=== PATIENT | male | born 1975 | race Caucasian/White ===

== ENCOUNTER 2018-03-27 17:55 | Emergency (ER) | payer OTHER ==
[~2018-03-27] VITALS: Ht 170.2 cm; Wt 93.0 kg
[~2018-03-27 17:55] MED LIST: PRILOSEC OTC20 MG PO; PRILOSEC20 MG; PRILOSEC20 MG PO; TEMOVATE45 GM TP; TESSALON PERLE100 M1 PO; TUSSIN CF COUG118 ML PO; ZOVIRAX15 GM TP; ZOVIRAX400 MG PO
[2018-03-27] MEDS ORDERED: DICLOFENAC POTA50 MG PO (20:00)
== END 2018-03-27 20:15 | disposition home or self-care (01) ==
LOC: ER 17:55
DX: M25.562 Pain in left knee (principal)

== ENCOUNTER 2018-05-23 04:57 | Emergency (ER) | payer OTHER ==
[~2018-05-23] VITALS: Ht 170.2 cm; Wt 95.3 kg
[~2018-05-23 04:57] MED LIST changes: +DICLOFENAC POTA50 MG PO
[2018-05-23] MEDS ORDERED: CATAFLAN (05:18)
[2018-05-23] MEDS ORDERED: CYCLOBENZAPRINE10 MG PO (06:18)
[2018-05-23] MEDS ORDERED: ORPHENADRINE C100 MG PO (06:18)
[2018-05-23] MEDS ORDERED: KETO10TA2 PO (06:18)
== END 2018-05-23 06:34 | disposition home or self-care (01) ==
LOC: ER 04:57
DX: M54.5 Low back pain (principal)

== ENCOUNTER 2018-09-12 06:15 | Outpatient (CLI) | payer OTHER ==
[~2018-09-12 06:15] MED LIST changes: +CATAFLAN; +CYCLOBENZAPRINE10 MG PO; +KETO10TA2 PO; +ORPHENADRINE C100 MG PO
== END 2018-09-12 15:00 | disposition home or self-care (01) ==
LOC: LAB 06:15
DX: R03.0 Elevated blood-pressure reading, without diagnosis of hypertension (principal); Z12.5 Encounter for screening for malignant neoplasm of prostate; Z12.11 Encounter for screening for malignant neoplasm of colon; Z13.1 Encounter for screening for diabetes mellitus

== ENCOUNTER 2019-01-13 08:56 | Outpatient (CLI) | payer OTHER | END 2019-01-13 09:04 | disposition home or self-care (01) | LOC: LAB 08:56 | DX: E78.4 Other hyperlipidemia (principal); R42 Dizziness and giddiness; Z00.00 Encounter for general adult medical examination without abnormal findings ==

== ENCOUNTER 2019-02-19 11:42 | Outpatient (CLI) | payer OTHER | END 2019-02-19 11:58 | disposition home or self-care (01) | LOC: LAB 11:42 | DX: J02.8 Acute pharyngitis due to other specified organisms (principal); Z11.3 Encounter for screening for infections with a predominantly sexual mode of transmission ==

== ENCOUNTER 2019-11-03 08:54 | Outpatient (CLI) | payer OTHER | END 2019-11-03 09:36 | disposition home or self-care (01) | LOC: LAB 08:54 | DX: E78.49 Other hyperlipidemia (principal); Z00.00 Encounter for general adult medical examination without abnormal findings; E55.9 Vitamin D deficiency, unspecified; N42.39 Other dysplasia of prostate ==

== ENCOUNTER 2020-08-05 06:00 | Outpatient (CLI) | payer OTHER | END 2020-08-05 15:20 | disposition home or self-care (01) | LOC: PPH VACUNA 06:00 | DX: Z23 Encounter for immunization (principal) ==

== ENCOUNTER → 2020-10-07 06:11 | Outpatient (CLI) | payer OTHER | END | disposition home or self-care (01) | LOC: LAB 06:11 | PROVIDERS: ATTEND General Practice | DX: Z00.00 Encounter for general adult medical examination without abnormal findings (principal); E55.9 Vitamin D deficiency, unspecified; Z11.3 Encounter for screening for infections with a predominantly sexual mode of transmission ==

== ENCOUNTER 2020-10-07 08:42 | Outpatient (CLI) | payer OTHER | END 2020-10-07 08:49 | disposition home or self-care (01) | LOC: RAD 08:42 | PROVIDERS: ATTEND General Practice | DX: R05 Cough (principal) ==

== ENCOUNTER 2020-12-09 12:51 | Emergency (ER) | payer OTHER ==
[~2020-12-09] VITALS: Ht 172.7 cm; Wt 93.0 kg
[2020-12-09] MEDS ORDERED: PRILOSEC10 MG (13:21)
[2020-12-09] MEDS ORDERED: SULFAMETHOXAZO1 EACH (13:22)
[2020-12-09] MEDS ORDERED: ULTRACET PO (15:27)
[2020-12-09] MEDS ORDERED: CIPRO500 MG PO (15:27)
[2020-12-09] MEDS ORDERED: INTESTINEX680 M1 PO (15:27)
== END 2020-12-09 15:37 | disposition home or self-care (01) ==
LOC: ER 12:51
DX: L02.212 Cutaneous abscess of back [any part, except buttock and flank] (principal)

== ENCOUNTER 2021-07-16 09:16 | Outpatient (CLI) | payer OTHER ==
[~2021-07-16 09:16] MED LIST changes: +CIPRO500 MG PO; +INTESTINEX680 M1 PO; +PRILOSEC10 MG; +SULFAMETHOXAZO1 EACH; +ULTRACET PO
== END 2021-07-16 09:19 | disposition home or self-care (01) ==
LOC: LAB 09:16
PROVIDERS: ATTEND General Practice
DX: Z00.00 Encounter for general adult medical examination without abnormal findings (principal)

== ENCOUNTER 2021-08-18 11:11 | Outpatient (CLI) | payer OTHER | END 2021-08-18 12:11 | disposition home or self-care (01) | LOC: PPH VACUNA 11:11 | PROVIDERS: ATTEND Emergency Medicine Pediatric Emergency Medicine | DX: Z23 Encounter for immunization (principal) ==

== ENCOUNTER 2021-11-24 10:24 | Outpatient (CLI) | payer OTHER | END 2021-11-24 14:38 | disposition home or self-care (01) | LOC: LAB 10:24 | DX: U07.1 COVID-19 (principal) ==

== ENCOUNTER 2022-04-10 08:27 | Outpatient (CLI) | payer OTHER | END 2022-04-10 09:36 | disposition home or self-care (01) | LOC: LAB 08:27 | PROVIDERS: ATTEND General Practice | DX: R07.0 Pain in throat (principal) ==

== ENCOUNTER 2022-04-17 10:03 | Outpatient (CLI) | payer OTHER | END 2022-04-17 10:51 | disposition home or self-care (01) | LOC: LAB 10:03 | PROVIDERS: ATTEND General Practice | DX: E78.9 Disorder of lipoprotein metabolism, unspecified (principal); E55.9 Vitamin D deficiency, unspecified; N39.0 Urinary tract infection, site not specified; R10.9 Unspecified abdominal pain; R42 Dizziness and giddiness; Z12.5 Encounter for screening for malignant neoplasm of prostate; Z00.00 Encounter for general adult medical examination without abnormal findings ==

== ENCOUNTER 2022-07-29 09:07 | Emergency (ER) | payer OTHER ==
[~2022-07-29] VITALS: Ht 170.2 cm; Wt 94.3 kg
== END 2022-07-29 14:27 | disposition home or self-care (01) ==
LOC: ER 09:07
DX: S90.32XA Contusion of left foot, initial encounter (principal); X58.XXXA Exposure to other specified factors, initial encounter; Y93.89 Activity, other specified; Y92.89 Other specified places as the place of occurrence of the external cause; Y99.9 Unspecified external cause status

== ENCOUNTER 2022-08-11 10:10 | Outpatient (CLI) | payer OTHER | END 2022-08-11 10:15 | disposition home or self-care (01) | LOC: PPH VACUNA 10:10 | PROVIDERS: ATTEND Emergency Medicine Pediatric Emergency Medicine | DX: Z23 Encounter for immunization (principal) ==

== ENCOUNTER 2023-11-07 12:30 | Outpatient (CLI) | payer OTHER | END 2023-11-07 12:31 | disposition home or self-care (01) | LOC: LAB 12:30 | PROVIDERS: ATTEND Obstetrics & Gynecology | DX: J02.9 Acute pharyngitis, unspecified (principal) ==

== ENCOUNTER 2023-11-15 05:33 | Emergency (ER) | payer OTHER ==
[~2023-11-15] VITALS: Ht 170.2 cm; Wt 95.3 kg
[2023-11-15 09:06] LABS: HEMATOCRIT 42.1 % (39.0-48.0); HEMOGLOBIN 14.3 g/dL (13-16.00); MEAN CELL VOLUME 87.3 fL (80.0-100.00); MEAN CORPUSCULAR HEMOGLOBIN 29.7 pg (27.00-32.0); PLATELET COUNT 142 K/uL (150-450); RED BLOOD COUNT 4.82 M/uL (4.00-6.00); RED CELL DISTRIBUTION WIDTH 14.5 % (11.5-14.5)
[2023-11-15 09:15] LABS: PH,URINE 5.5 (5.0-8.0); URINE APPEARANCE Clear; URINE BILIRRUBIN Small (NEGATIVE); URINE BLOOD Negative; URINE COLOR Dark Yellow; URINE GLUCOSE Negative (NEGATIVE); URINE LEUKOCYTE Trace; URINE NITRATE Negative; URINE PROTEIN 30 (NEGATIVE)
[2023-11-15 09:16] LABS: URINE BACTERIA 20.1 uL (0.0-1933); URINE EPITHELIAL CELLS 7.4 uL (0.0-38.8); URINE RBC 30.1 uL (0.0-20.8)
[2023-11-15 09:35] LABS: CALCIUM 9.2 mg/dL (8.5-10.1); CREATININE SERUM 0.97 mg/dL (0.70-1.30); GFR 81.92; POTASSIUM 3.7 mEq/L (3.5-5.1)
== END 2023-11-15 11:02 | disposition home or self-care (01) ==
LOC: ER 05:34
PROVIDERS: Emergency Medicine
DX: A92.8 Other specified mosquito-borne viral fevers (principal); E86.0 Dehydration; Z20.822 Contact with and (suspected) exposure to COVID-19

== ENCOUNTER 2023-11-17 05:34 | Emergency (ER) | payer OTHER ==
[~2023-11-17] VITALS: Ht 172.7 cm; Wt 95.3 kg
[2023-11-17 08:24] LABS: HEMATOCRIT 46.8 % (39.0-48.0); HEMOGLOBIN 15.7 g/dL (13-16.00); MEAN CELL VOLUME 88.7 fL (80.0-100.00); MEAN CORPUSCULAR HEMOGLOBIN 29.7 pg (27.00-32.0); MEAN CORPUSCULAR HGB CONC 33.5 g/dl (32.0-36.0); RED BLOOD COUNT 5.27 M/uL (4.00-6.00); RED CELL DISTRIBUTION WIDTH 14.6 % (11.5-14.5)
[2023-11-17 08:26] LABS: PLATELET COUNT 91 K/uL (150-450)
[2023-11-17 08:27] LABS: PH,URINE 5.5 (5.0-8.0); URINE APPEARANCE Cloudy; URINE BACTERIA 40.3 uL (0.0-1933); URINE BILIRRUBIN Small (NEGATIVE); URINE COLOR Dark Yellow; URINE EPITHELIAL CELLS 30.2 uL (0.0-38.8); URINE GLUCOSE Negative (NEGATIVE); URINE LEUKOCYTE Trace; URINE NITRATE Negative; URINE RBC 47.1 uL (0.0-20.8); URINE WBC 6.1 uL (0.0-23.2)
[2023-11-17 08:57] LABS: ALBUMIN 4.1 gm/dL (3.4-5.0); BILIRUBIN TOTAL 0.51 mg/dL (0.3-1.2); BILIRUBIN,CONJUGATED 0.14 mg/dL (0.0-0.2); BILIRUBIN,UNCONJUGATED 0.37 mg/dL (0.0-0.6); CALCIUM 8.8 mg/dL (8.5-10.1); CREATININE SERUM 1.24 mg/dL (0.70-1.30); GFR 61.71; GLOBULINA 4.8 G/DL (2.4-3.5); POTASSIUM 3.49 mEq/L (3.5-5.1); TOTAL PROTEIN 8.9 gm/dL (6.4-8.2)
[2023-11-17 09:12] LABS: URINE BLOOD TRACES; URINE PROTEIN 300 (NEGATIVE)
[2023-11-17 09:13] LABS: URINE MUCUS MODERATE
[2023-11-17 10:49] LABS: INR 1.12; PARTIAL THROMBOPLASTIN TIME 34.3 SECONDS (22.0-34.0); PROTHROMBIN TIME 11.7 SECONDS (9.0-11.5)
== END 2023-11-17 11:43 | disposition home or self-care (01) ==
LOC: ER 05:35
PROVIDERS: General Practice
DX: R50.9 Fever, unspecified (principal); E86.0 Dehydration; F17.210 Nicotine dependence, cigarettes, uncomplicated; Z20.822 Contact with and (suspected) exposure to COVID-19

== ENCOUNTER 2024-01-20 08:33 | Emergency (ER) | payer OTHER ==
[~2024-01-20] VITALS: Ht 172.7 cm; Wt 95.3 kg
[2024-01-20 09:38] LABS: HEMOGLOBIN 13.6 g/dL (13-16.00); MEAN CELL VOLUME 89.1 fL (80.0-100.00); MEAN CORPUSCULAR HEMOGLOBIN 30.4 pg (27.00-32.0); MEAN CORPUSCULAR HGB CONC 34.1 g/dl (32.0-36.0); PLATELET COUNT 212 K/uL (150-450); RED BLOOD COUNT 4.49 M/uL (4.00-6.00); RED CELL DISTRIBUTION WIDTH 14.9 % (11.5-14.5)
== END 2024-01-20 11:21 | disposition home or self-care (01) ==
LOC: ER 08:33
PROVIDERS: Emergency Medicine
DX: R07.89 Other chest pain (principal)

== ENCOUNTER 2024-05-15 06:12 | Outpatient (CLI) | payer OTHER ==
[2024-05-15 07:02] LABS: HEMATOCRIT 41.8 % (39.0-48.0); HEMOGLOBIN 14.2 g/dL (13-16.00); MEAN CELL VOLUME 89.3 fL (80.0-100.00); MEAN CORPUSCULAR HEMOGLOBIN 30.4 pg (27.00-32.0); MEAN CORPUSCULAR HGB CONC 34.1 g/dl (32.0-36.0); PLATELET COUNT 185 K/uL (150-450); RED BLOOD COUNT 4.68 M/uL (4.00-6.00); RED CELL DISTRIBUTION WIDTH 14.5 % (11.5-14.5)
[2024-05-15 07:08] LABS: PH,URINE 5.5 (5.0-8.0); URINE APPEARANCE Clear; URINE BILIRRUBIN Negative (NEGATIVE); URINE BLOOD Negative; URINE COLOR Yellow; URINE GLUCOSE Negative (NEGATIVE); URINE LEUKOCYTE Negative; URINE NITRATE Negative; URINE PROTEIN Negative (NEGATIVE); URINE UROBILINOGEN 0.2 E.U./dl
[2024-05-15 07:09] LABS: URINE BACTERIA 26.4 uL (0.0-1933); URINE EPITHELIAL CELLS 5.4 uL (0.0-38.8); URINE RBC 5.3 uL (0.0-20.8); URINE WBC 3.8 uL (0.0-23.2)
[2024-05-15 07:46] LABS: INR 0.99; PARTIAL THROMBOPLASTIN TIME 28.8 SECONDS (22.0-34.0); PROTHROMBIN TIME 10.4 SECONDS (9.0-11.5)
[2024-05-15 07:53] LABS: ALBUMIN 3.8 gm/dL (3.4-5.0); BILIRUBIN TOTAL 0.57 mg/dL (0.3-1.2); CALCIUM 9.1 mg/dL (8.5-10.1); CREATININE SERUM 0.8 mg/dL (0.70-1.30); GFR 101.91; GLOBULINA 3.6 G/DL (2.4-3.5); POTASSIUM 3.87 mEq/L (3.5-5.1); TOTAL PROTEIN 7.4 gm/dL (6.4-8.2)
== END 2024-05-15 06:19 | disposition home or self-care (01) ==
LOC: LAB 06:12
PROVIDERS: ATTEND Specialist
DX: K40.90 Unilateral inguinal hernia, without obstruction or gangrene, not specified as recurrent (principal)

== ENCOUNTER 2024-05-22 07:56 | Day surgery (SDC) | payer OTHER ==
[2024-05-22] MEDS ORDERED: CEFAZOLIN SODIUM 1,000 MG VIAL IV SCH ×2 (14:15→15:45)
[2024-05-22] MEDS ORDERED: FAMOTIDINE/PF 20 MG/10 ML SYRINGE IV SCH (15:45)
== END 2024-05-22 21:05 | disposition home or self-care (01) ==
LOC: CIR.AMB 07:56
PROVIDERS: ATTEND Specialist
DX: K40.90 Unilateral inguinal hernia, without obstruction or gangrene, not specified as recurrent (principal); K21.9 Gastro-esophageal reflux disease without esophagitis
CPT/HCPCS: 49505; C1781

== ENCOUNTER 2024-10-12 11:35 | Outpatient (CLI) | payer OTHER | END 2024-10-12 11:45 | disposition home or self-care (01) | LOC: PPH VACUNA 11:35 | PROVIDERS: ATTEND Emergency Medicine Pediatric Emergency Medicine | DX: Z23 Encounter for immunization (principal) ==

== ENCOUNTER → 2025-02-05 13:51 | Outpatient (CLI) | payer OTHER ==
[2025-02-07 07:08] LABS: HEPATITIS A IGM Negative (Negative); HEPATITIS B SURFACE ANTIBODY Non Reactive (.); HEPATITIS C VIRUS ANTIBODY Non Reactive (Non Reactive)
== END | disposition home or self-care (01) ==
LOC: LAB 13:51
DX: R07.0 Pain in throat (principal); A64 Unspecified sexually transmitted disease; B19.9 Unspecified viral hepatitis without hepatic coma

== ENCOUNTER → 2025-05-10 | Emergency (ER) | payer OTHER | END | disposition left against medical advice (07) | LOC: ER 18:44 | DX: Z53.21 Procedure and treatment not carried out due to patient leaving prior to being seen by health care provider (principal) ==

== ENCOUNTER 2025-05-11 09:48 | Outpatient (CLI) | payer OTHER | END 2025-05-11 09:50 | disposition home or self-care (01) | LOC: RAD 09:48 | PROVIDERS: ATTEND Internal Medicine Cardiovascular Disease | DX: I10 Essential (primary) hypertension (principal); K21.9 Gastro-esophageal reflux disease without esophagitis ==

== ENCOUNTER 2025-05-11 10:22 | Outpatient (CLI) | payer OTHER ==
[2025-05-11 11:43] LABS: BASO % 0.5 % (0.1-1.2); EOS # 0.19 (0.04-0.54); EOS % 3.4 % (0.7-7.0); HEMATOCRIT 43.7 % (40.1-51.0); HEMOGLOBIN 14.5 g/dL (13.7-17.5); LYMPH # 1.54 (1.18-3.74); LYMPH % 27.4 % (19.3-53.1); MEAN CORPUSCULAR HEMOGLOBIN 29.1 pg (25.6-32.2); MONO # 0.39 (0.24-0.82); MONO % 6.9 % (4.7-12.5); NEUT # 3.47 (1.56-6.13); NEUT % 61.6 % (34.0-71.1); PLATELET COUNT 225 K/uL (163-369); RED BLOOD COUNT 4.98 M/uL (4.63-6.08); RED CELL DISTRIBUTION WIDTH 13.4 % (11.6-14.4); URINE APPEARANCE Clear; URINE BILIRRUBIN Negative (NEGATIVE); URINE BLOOD Negative; URINE COLOR Yellow; URINE GLUCOSE Negative (NEGATIVE); URINE KETONE Trace (NEGATIVE); URINE LEUKOCYTE Negative; URINE NITRATE Negative; URINE PROTEIN Negative (NEGATIVE); URINE UROBILINOGEN 0.2 E.U./dl
[2025-05-11 11:45] LABS: URINE BACTERIA 29.3 uL (0.0-1933); URINE EPITHELIAL CELLS 6.7 uL (0.0-38.8); URINE RBC 8.9 uL (0.0-20.8); URINE WBC 5.2 uL (0.0-23.2)
[2025-05-11 12:18] LABS: ALBUMIN 4.2 gm/dL (3.4-5.0); BILIRUBIN TOTAL 0.56 mg/dL (0.3-1.2); CALCIUM 9.8 mg/dL (8.5-10.1); CHOL HDL RATIO 3.9 (0-5.0); CREATININE SERUM 0.78 mg/dL (0.70-1.30); GFR 104.52; GLOBULINA 3.9 G/DL (2.4-3.5); POTASSIUM 4.3 mEq/L (3.5-5.1); PROSTATIC SPECIFIC ANTIGEN 0.821 NG/ML (0.010-4.00); TOTAL PROTEIN 8.1 gm/dL (6.4-8.2); TSH 0.725 uIU/mL (0.358-3.74)
== END 2025-05-11 10:27 | disposition home or self-care (01) ==
LOC: LAB 10:22
PROVIDERS: ATTEND Internal Medicine Cardiovascular Disease
DX: I10 Essential (primary) hypertension (principal)

== ENCOUNTER 2025-09-25 13:35 | Outpatient (CLI) | payer OTHER | END 2025-09-25 13:45 | disposition home or self-care (01) | LOC: PPH VACUNA 13:35 | PROVIDERS: ATTEND Emergency Medicine Pediatric Emergency Medicine | DX: Z23 Encounter for immunization (principal) ==